=== PATIENT | female | born 1985 | race African-American/Black ===

== ENCOUNTER 2018-07-23 06:04 | Day surgery (SDC) | payer OTHER ==
[2018-07-22 17:21] VITALS: BMI 20.6
[2018-07-23] MEDS ORDERED: LIDOCAINE HCL 2% (20ML MULTI-DOSE VIAL) NR ONE (07:23)
[2018-07-23] MEDS ORDERED: BUPIVACAINE HCL/PF 0.5% (5MG/ML) 10 ML VIAL ONE (07:23)
[2018-07-23] MEDS ORDERED: BUPIVACAINE HCL/PF 0.5% (5MG/ML) 10 ML VIAL IJ ONE (08:14)
[2018-07-23] MEDS ORDERED: LIDOCAINE HCL 2% (50ML VIAL) NR ONE (08:14)
[2018-07-23] MEDS ORDERED: DEXAMETHASONE SOD PHOSPHATE 4 MG/1 ML VIAL ONE (08:26)
[2018-07-23] MEDS ORDERED: DEXAMETHASONE SOD PHOSPHATE 4 MG/1 ML VIAL NR ONE (08:30)
[2018-07-23 08:58] VITALS: TEMP 98.1
[2018-07-23 10:02] VITALS: BP 108/71; PULSE 71
--- NOTE | 2018-07-26 16:58 | PATH ---
Surgical Pathology Report Patient Name: MARITZA NICHOLSON [facility]. Rec. #: [id number] /Age/Gender: 1985 (Age: 32) / F Account: [id number] Location: [facility] SURGICAL Taken: 07/23/2018 Received: 07/23/2018 Reported: 07/26/2018 Physicians: Ángel Martinez DPM Specimen(s) Received SKIN AND BONE RIGHT 2ND TOE Clinical History Right second toe Hammer toe Final Diagnosis SKIN AND BONE, SECOND TOE, RIGHT, CORRECTION OF PAINFUL HAMMERTOE: BONE WITH DEGENERATIVE CHANGES AND FATTY MARROW. SKIN WITHOUT SIGNIFICANT PATHOLOGIC FINDINGS. Electronically Signed Paula Dobbs M.D. Gross Description Received in formalin labeled "skin and bone second right toe," is a 2.0 x 0.2 x 0.2 cm morrow, elliptical, unoriented portion of skin. Also received within the same container is a 1.0 x 0.8 x 0.5 cm morrow-yellow portion of bone. The bone is bisected and the specimen is entirely submitted in one cassette, following decalcification. 07/23/201807/23/2018
== END 2018-07-23 09:45 | disposition home or self-care (01) ==
LOC: JASU-SURG 06:04
PROVIDERS: ATTEND Podiatrist
PROC: 0SRP0JZ Replacement of Right Toe Phalangeal Joint with Synthetic Substitute, Open Approach (ICD-10-PCS; principal; 2018-07-23 07:30)
DX: M20.41 Other hammer toe(s) (acquired), right foot (principal)
CPT/HCPCS: 84703; 88305-TC; 88311-TC

== ENCOUNTER 2018-07-31 15:38 | Emergency (ER) | payer OTHER ==
[2018-07-31 15:57] VITALS: BMI 20.6
--- NOTE | 2018-07-31 19:20 | PDOC ---
History of Present Illness - History of Present Illness Initial Comments: 32yo F with PMH of hammertoe s/p same day surgery on R. second digit of the foot on 07/23/19 presenting with fever. The procedure was performed at this hospital by Dr. Ángel Martinez. Patient reports she has had intermittent fevers at home with thermometer readings between 99 and 100.2 since 07/29. She saw Dr. Martinez on Monday 07/30, but did not report her fever to him then because it was not present at that time. Patient reports that her wound has been progressing appropriately. No discharge, oozing, or erythema noted. She has not taken anything at home for her fever. No sick contacts or recent travel. Did not get a flu shot this season. Patient denies chest pain, shortness of breath, or urinary symptoms. <Sejal Cho - Last Filed: 08/01/18 01:31> - History of Present Illness Initial Comments: correction: 07/23/18 surgery for adriana 08/01/18 16:38 <Portia Gunter - Last Filed: 08/01/18 16:39> - General Chief Complaint: Revisit,Wound Recheck Stated Complaint: FEVER Time Seen by Provider: 07/31/18 19:20 Past History - Past Medical History Anemia: Yes Asthma: No Cancer: No Cardiac Disorders: No CVA: No COPD: No CHF: No Dementia: No Diabetes: No GI Disorders: No Disorders: No HTN: No Hypercholesterolemia: No Liver Disease: No Seizures: No Thyroid Disease: No - Immunization History Immunization Up to Date: Yes - Suicide/Smoking/Psychosocial Hx Smoking Status: No Smoking History: Never smoked Have you smoked in the past 12 months: No Number of Cigarettes Smoked Daily: 0 Cigars Per Day: 0 Hx Alcohol Use: No Drug/Substance Use Hx: No Substance Use Type: None Hx Substance Use Treatment: No <Sejal Cho - Last Filed: 08/01/18 01:31> <Portia Gunter - Last Filed: 08/01/18 16:39> - Past Medical History Allergies/Adverse Reactions: Allergies Allergy/AdvReac Type Severity Reaction Status Date / Time No Known Allergies Allergy Verified 07/31/18 15:57 Home Medications: Ambulatory Orders NK [No Known Home Medication] 06/01/16 Review of Systems - Review of Systems Comments:: Constitutional: +fever, +chills HEENT: no throat pain, no dysphagia Cardiovascular: no chest pain, no palpitations Respiratory: no cough, no shortness of breath Gastrointestinal: no abdominal pain, no nausea, no vomiting Genitourinary: no dysuria, no frequency Musculoskeletal: no myalgia, no arthralgia Skin: no rash, no itching Neurologic: no headache, no dizziness <Sejal Cho - Last Filed: 08/01/18 01:31> *Physical Exam - Vital Signs Last Vital Signs Temp Pulse Resp BP Pulse Ox 97.8 F 83 18 102/73 100 07/31/18 15:54 07/31/18 15:54 07/31/18 15:54 07/31/18 15:54 07/31/18 15:54 - Physical Exam Comments: General: Awake, alert, and fully oriented, in no acute distress Head: No signs of trauma Eyes: EOMI, sclera anicteric ENT: Moist mucus membranes Neck: Normal ROM, supple Lungs: Lungs clear, Normal breath sounds Cardio: Regular rhythm, S1 and S2 present Abdomen: Soft, nontender. No guarding, no rebound, no masses Extremities: Normal range of motion, Distal pulses present; well-healing surgical site on superior aspect of second digit of R. foot without discharge, bleeding, erythema, fluctuance, or induration SKIN: Warm, Dry, normal turgor Neurologic: Cranial nerves II through XII grossly intact. Normal speech <Nick Choth - Last Filed: 08/01/18 01:31> - Vital Signs Last Vital Signs Temp Pulse Resp BP Pulse Ox 98.0 F 86 20 110/75 100 07/31/18 23:00 07/31/18 23:00 07/31/18 23:00 07/31/18 23:00 07/31/18 23:00 <Portia Gunter - Last Filed: 08/01/18 16:39> Moderate Sedation - Procedure Monitoring Vital Signs: Procedure Monitoring Vital Signs Temperature 97.8 F 07/31/18 15:54 Pulse Rate 83 07/31/18 15:54 Respiratory Rate 18 07/31/18 15:54 Blood Pressure 102/73 07/31/18 15:54 O2 Sat by Pulse Oximetry (%) 100 07/31/18 15:54 <Sejal Cho - Last Filed: 08/01/18 01:31> - Procedure Monitoring Vital Signs: Procedure Monitoring Vital Signs Temperature 98.0 F 07/31/18 23:00 Pulse Rate 86 07/31/18 23:00 Respiratory Rate 20 07/31/18 23:00 Blood Pressure 110/75 07/31/18 23:00 O2 Sat by Pulse Oximetry (%) 100 07/31/18 23:00 <Portia Gunter - Last Filed: 08/01/18 16:39> ED Treatment Course - LABORATORY CBC & Chemistry Diagram: 07/31/18 21:13 07/31/18 21:13 <Sejal Cho - Last Filed: 08/01/18 01:31> - LABORATORY CBC & Chemistry Diagram: 07/31/18 21:13 07/31/18 21:13 - ADDITIONAL ORDERS Additional order review: 07/31/18 21:13 RBC 3.98 MCV 80.2 MCHC 31.9 L RDW 18.9 H MPV 7.5 D Neutrophils % 53.5 D Lymphocytes % 39.2 Monocytes % 4.2 Eosinophils % 1.8 Basophils % 1.3 <Portia Gunter - Last Filed: 08/01/18 16:39> Medical Decision Making - Medical Decision Making 32yo F with PMH of adriana s/p same day surgery on R. second digit of the foot on 07/23/19 presenting with fever. -DDX includes but not limited to post-op fever, viral illness, influenza, pneumonia -Patient report temperature as high as 100.2 at home, but this does not meet the criteria for significant fever (100.4); patient afebrile upon triage -Labs: CBC, CMP, ESR, CRP, Foot xray -Patient does not want any medicine for her subjective fever and chills -No leukocytosis, hgb is at patient's baseline. Slighly elevated ESR, CRP normal -Radiograph of foot does not show signs of osteomyelitic -Exam of surgical site is well-healing without signs of local infection -Patient will follow up with her orthopedist at already scheduled appointment <Sejal Cho - Last Filed: 08/01/18 01:31> *DC/Admit/Observation/Transfer <Sejal Cho - Last Filed: 08/01/18 01:31> <Portia Gunter - Last Filed: 08/01/18 16:39> Diagnosis at time of Disposition: S/P foot surgery, right, Low grade fever - Discharge Dispostion Disposition: HOME Condition at time of disposition: Stable - Referrals Referrals: Johnathon Johnson MD [Primary Care Provider] - - Patient Instructions Additional Instructions: You came to the ED for fever after having surgery. Your workup was normal. You can take [id number] motrin or tylenol for fever. Follow the instructions on the medication bottle Follow-up with your orthopedist at your already scheduled appointment. RETURN to the ED if there is: redness or hardness around the wound, pain or tenderness, a red streak, yellow or green discharge oozing from the wound, or fever greater than 100.4. If you think you have an emergency, call for medical help right away. - Post Discharge Activity
[2018-07-31 21:21] LABS: BASO % 1.3 % (0-2.0); EOS % 1.8 % (0-4.5); HEMATOCRIT 31.9 % (32.4-45.2); HEMOGLOBIN 10.2 GM/dL (10.7-15.3); LYMPH % 39.2 % (8-40); MCH 25.5 pg (25.7-33.7); MCHC 31.9 g/dl (32.0-36.0); MEAN CELL VOLUME 80.2 fl (80-96); MEAN PLT VOLUME 7.5 fl (7.5-11.1); MONO % 4.2 % (3.8-10.2); NEUT % 53.5 % (42.8-82.8); PLATELET COUNT 245 K/MM3 (134-434); RBC 3.98 M/mm3 (3.60-5.2); RDW 18.9 % (11.6-15.6); WHITE BLOOD COUNT 4.9 K/mm3 (4.0-10.0)
--- NOTE | 2018-07-31 21:41 | PDOC ---
Attending Attestation - Resident Resident Name: TammieSejal - ED Attending Attestation I have performed the following: I have examined & evaluated the patient, The case was reviewed & discussed with the resident, I agree w/resident's findings & plan - HPI HPI: 07/31/18 21:39 [id number], with no significant past medical history, who presents to the emergency department with, intermittent low grade fevers. As per patient, she had same day hammertoe surgery on the right 2nd toe a week ago (07/23) and was discharged. She notes since that time she has been experiencing intermittent fevers ranging between 99-100.2F. She visited her orthopedic surgeon yesterday but, did not inform him of these episodes because she was not experiencing it in the moment. able to ambulate. 07/31/18 21:40 - Physicial Exam PE: 07/31/18 21:39 Right foot/2nd toe - well healing scar dorsally. Surgical pin on underside. No discharge or bleeding. no warmth or erythema. no purulence. 2+ pedal pulses, NVI, ambulatory, able to bear weight. - Medical Decision Making 07/31/18 21:40 hpi as documented VS wnl, no fever labs and lytes wnl. CRP normal, reassuring less likely inflammatory/infectious. XR with pin in place, no bony erosions. no e/o osteo or bony breakdown, gas/air NVI, no e/o infection or systemic sx. low grade fever historically f/u Dr Flank/podiatry as outpatient. return precautions discussed, infection sx provided (f/c, >100.4, purulence, erythema, warmth). DC in stable condition. return precautions. 07/31/18 22:33
[2018-07-31 22:17] LABS: ALBUMIN 3.9 g/dl (3.4-5.0); ALK PHOS 109 U/L (45-117); ANION GAP 8 MMOL/L (8-16); BILIRUBIN,TOTAL 0.4 mg/dL (0.2-1); BLOOD UREA NITROGEN 11 mg/dL (7-18); CALCIUM 8.1 mg/dL (8.5-10.1); CHLORIDE 105 mmol/L (98-107); CO2 25 mmol/L (21-32); CREATININE 0.7 mg/dL (0.55-1.3); GLUCOSE,RANDOM 85 mg/dL (74-106); SGOT/AST 13 U/L (15-37); SGPT/ALT 17 U/L (13-61); SODIUM 138 mmol/L (136-145); TOT PROT 7.9 g/dl (6.4-8.2)
[2018-07-31 23:14] VITALS: BP 110/75; PULSE 86; TEMP 98
== END 2018-07-31 23:15 | disposition home or self-care (01) ==
LOC: JER 15:38
DX: R50.9 Fever, unspecified (principal); Z98.890 Other specified postprocedural states
CPT/HCPCS: 36415; 73630-TC-RT-FY; 80053; 85025; 85651; 86140; 99282-25

== ENCOUNTER 2020-06-25 08:41 | Emergency (ER) | payer OTHER ==
[2020-06-25 08:46] VITALS: BP 102/68; PULSE 93; TEMP 99.7; BMI 19.3
[2020-06-25 09:18] LABS: THROAT:GRP A STREP ANTIGEN Negative (Negative)
== END 2020-06-25 09:42 | disposition home or self-care (01) ==
LOC: JER 08:41
DX: U07.1 COVID-19 (principal); J02.9 Acute pharyngitis, unspecified
CPT/HCPCS: 87070; 87880; 99283-25; C9803; U0003

== ENCOUNTER 2020-10-04 19:25 | Emergency (ER) | payer OTHER ==
[2020-10-04 19:32] VITALS: BP 106/63; PULSE 75; TEMP 98.8; BMI 20.3
== END 2020-10-04 20:25 | disposition home or self-care (01) ==
LOC: FER 19:25
DX: L63.9 Alopecia areata, unspecified (principal); R21 Rash and other nonspecific skin eruption
CPT/HCPCS: 99281-25

== ENCOUNTER 2020-12-29 20:18 | Emergency (ER) | payer OTHER ==
[2020-12-29] MEDS ORDERED: IBUPROFEN 600 MG TABLET (FP) PO ONE (20:24)
[2020-12-29 20:40] VITALS: BP 125/77; PULSE 84; TEMP 98.7; BMI 19.7
== END 2020-12-29 21:15 | disposition home or self-care (01) ==
LOC: FER 20:18
DX: S93.401A Sprain of unspecified ligament of right ankle, initial encounter (principal); X50.9XXA Other and unspecified overexertion or strenuous movements or postures, initial encounter
CPT/HCPCS: 73610-TC-RT-FY; 99283-25